=== PATIENT | female | born 1965 ===

== ENCOUNTER 2022-01-13 06:44 | Day surgery (SDC) | payer OTHER ==
[~2022-01-13] VITALS: Ht 177.8 cm; Wt 76.2 kg
[~2022-01-13 06:44] MED LIST: CIMZIA400 MG/2 M; METHOTREXATE2.5 MG PO; MILLIPRED5 MG PO; SYNTHROID137 MCG PO
== END 2022-01-13 22:30 | disposition home or self-care (01) ==
LOC: CIR.AMB 06:44 → EDBD 07:30 → CIR.AMB 18:00
PROVIDERS: ATTEND Orthopaedic Surgery Hand Surgery
DX: M05.79 Rheumatoid arthritis with rheumatoid factor of multiple sites without organ or systems involvement (principal); M19.231 Secondary osteoarthritis, right wrist; M66.241 Spontaneous rupture of extensor tendons, right hand; Z20.822 Contact with and (suspected) exposure to COVID-19; Z88.0 Allergy status to penicillin; Z86.16 Personal history of COVID-19; E03.9 Hypothyroidism, unspecified; K21.9 Gastro-esophageal reflux disease without esophagitis
CPT/HCPCS: 25337; 25441; 26442; C1776